=== PATIENT | male | born 1935 | race Two or more races ===

== ENCOUNTER 2020-07-30 06:24 | Inpatient (IN) | payer OTHER ==
[2020-07-30] VITALS (8 sets, daily range): BP systolic 116–151; BP diastolic 54–73
[~2020-07-30] VITALS: Ht 167.6 cm; Wt 112.5 kg
[2020-07-30] MEDS ORDERED: ceFAZolin sod 2 GM in NS 55 ML IVPB ONE (07:00)
[2020-07-30] MEDS ORDERED: ACETAMINOPHEN-1 EAC1 ORAL (09:49)
[2020-07-30] MEDS ORDERED: Lidocaine 1% MPF 10mg/ml 5ml ONE (09:49)
[2020-07-30] MEDS ORDERED: Sodium Chloride 10ml vial INJ ONE (09:49)
[2020-07-30] MEDS ORDERED: Midazolam 2mg/2ml Inj ONE (09:50)
[2020-07-30] MEDS ORDERED: fentaNYL 100 mcg/2 mL IV ONE (09:50)
[2020-07-30] MEDS ORDERED: Ketamine 500mg/10ml vial ONE (09:51)
[2020-07-30] MEDS ORDERED: Bacitracin 50000 Units Vial ONE (09:55)
[2020-07-30] MEDS ORDERED: Gelfoam Size TOPIC ONE (09:55)
[2020-07-30] MEDS ORDERED: Thrombin 5000 units TOPIC ONE (09:55)
--- NOTE | 2020-07-30 10:13 | Anethesia Preoperative Eval ---
Anesthesia Pre-op PMH/ROS General Date of Evaluation: Jul 30, 2020 Time of Evaluation: 10:36 Anesthesiologist: Kia ASA Score: ASA 3 Mallampati Score Class I : Soft palate, uvula, fauces, pillars visible Class II: Soft palate, uvula, fauces visible Class III: Soft palate, base of uvula visible Class IV: Only hard plate visible Mallampati Classification: Class III Surgeon: Ninfa Diagnosis: Neck Pain Surgical Procedure: ACDF C4-5,5-6,6-7 Anesthesia History: none Family History: no anesthesia problems Allergies: Coded Allergies: No Known Allergies (Unverified , 07/28/20) Medications: see eMAR Patient NPO?: Yes Past Medical History Cardiovascular: Reports: HTN, other - Veous Stasis Legs Gastrointestinal/Genitourinary: Reports: other - BPH Musculoskeletal/Integumentary: Reports: edema - Legs Other: obesity - Morbid BMI 41 Anesthesia Pre-op Phys. Exam Physician Exam Vital Signs Date Time Temp Pulse Resp B/P (MAP) Pulse Ox O2 Delivery O2 Flow Rate FiO2 07/30/20 09:51 Room Air 07/30/20 10:31 97.8 20 151/69 (96) 99 Last Vital Signs Date Time Temp Pulse Resp B/P (MAP) Pulse Ox O2 Delivery O2 Flow Rate FiO2 07/30/20 09:51 Room Air Constitutional: NAD Neurologic: CN 2-12 intact Cardiovascular: RRR Respiratory: CTA Gastrointestinal: S/NT/ND Airway Exam Mallampati Score: Class III MO: limited ROM: limited Teeth: missing, intact Anesthesia Pre-op A/P Risk Assessment & Plan Assessment: ASA 3 Plan: GA, SED, GlideScope Status Change Before Surgery: No Pre-Antibiotics Dru Grams Ancef IV Given Within 1 Hr of Incision: Yes Time Given: 11:11 Stefano Adam MD Jul 30, 2020 10:13
--- NOTE | 2020-07-30 10:14 | Immediate Post-Op Evaluation ---
Immediate Post-Op Evalulation Immediate Post-Op Evalulation Procedure: ACDF C4-5,5-6,6-7 Date of Evaluation: Jul 30, 2020 Time of Evaluation: 14:30 IV Fluids: 1000 LR Blood Products: 0 Estimated Blood Loss: 100 Urinary Output: 200 Blood Pressure Systolic: 150 Blood Pressure Diastolic: 67 Pulse Rate: 62 Respiratory Rate: 16 O2 Sat by Pulse Oximetry: 100 Temperature (Fahrenheit): 97.7 Pain Score (1-10): 2 Nausea: No Vomiting: No Complications 0 Patient Status: awake, reacts, patent, extubated, none Hydration Status: adequate Dru Grams Ancef IV Given Within 1 Hr of Incision: Yes Time Given: 11:11 Stefano Adam MD Jul 30, 2020 10:14
[2020-07-30] MEDS ORDERED: HYDROcodone/Acetamin 5/325 tab ORAL PRN ×2 (10:15→11:30)
[2020-07-30] MEDS ORDERED: Midazolam 2mg/2ml Inj IVP PRN (10:15)
[2020-07-30] MEDS ORDERED: fentaNYL 100 mcg/2 mL IV PRN (10:15)
[2020-07-30] MEDS ORDERED: LORazepam Inj 2mg/ml 1ml IV PRN (10:15)
[2020-07-30] MEDS ORDERED: DiphenhydrAMINE 50mg/ml Inj IVP PRN (10:15)
[2020-07-30] MEDS ORDERED: Acetaminophen (Non formulary) 100 ML IV ONE (10:15)
[2020-07-30] MEDS ORDERED: Hydromorphone 0.5mg/0.5ml inj IVP PRN (10:15)
[2020-07-30] MEDS ORDERED: Metoclopramide 10mg/2ml Inj IVP PRN ×2 (10:15→11:30)
[2020-07-30] MEDS ORDERED: Labetalol 5mg/ml 20ml vial IV PRN (10:15)
[2020-07-30] MEDS ORDERED: LR 1000ml 1,000 ML IVLG SCH (10:15)
[2020-07-30] MEDS ORDERED: Ketorolac 30mg Inj IV PRN ×2 (10:15)
[2020-07-30] MEDS ORDERED: oxyCODONE HCL/Acetaminophen 5/325mg ORAL PRN (10:15)
[2020-07-30] MEDS ORDERED: Atropine Sulfate 0.4mg/ml inj IVP PRN (10:15)
[2020-07-30] MEDS ORDERED: HYDROcodone/Acetamin 7.5/325 tab ORAL PRN ×3 (10:15→11:30)
[2020-07-30] MEDS ORDERED: Meperidine 25mg/1ml Inj (FOR RIGORS ONLY) IV PRN (10:15)
--- NOTE | 2020-07-30 10:15 | 48 Hour Post Anesthesia Eval ---
Post Anesthesia Evaluation Procedure: ACDF C4-5,5-6,6-7 Date of Evaluation: Jul 30, 2020 Time of Evaluation: 16:45 Blood Pressure Systolic: 141 0: 68 Pulse Rate: 66 Respiratory Rate: 18 Temperature (Fahrenheit): 98 O2 Sat by Pulse Oximetry: 100 Airway: patent Nausea: No Vomiting: No Pain Intensity: 2 Hydration Status: adequate Cardiopulmonary Status: Stable Mental Status/LOC: patient returned to baseline Follow-up Care/Observations: 0 Post-Anesthesia Complications: 0 Follow-up care needed: N/A Stefano Adam MD Jul 30, 2020 10:15
--- NOTE | 2020-07-30 11:25 | Pre-Procedure Note/Attestation ---
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 I attest that, if there was a reasonable possibility of needing a blood transfusion, the patient (or the patient's legal office services representative) was given the [place] [employer] [facility] standardized written summary, pursuant to the [place] Blood Safety Act ([place] Health and Safety Code # 1645, as amended). I attest that I re-evaluated the patient just prior to the surgery and that there has been no change in the patient's H&P, except as documented below: Kenny Ocasio MD Jul 30, 2020 11:25
--- NOTE | 2020-07-30 11:28 | Brief Operative Note ---
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
[2020-07-30] MEDS ORDERED: Naloxone 0.4mg/ml Inj IVP PRN (11:30)
[2020-07-30] MEDS ORDERED: Morphine Sulfate 4mg/ml Inj (IV USE ONLY) IV PRN ×2 (11:30)
[2020-07-30] MEDS ORDERED: Milk of Magnesia 30ml Ud ORAL PRN (11:30)
[2020-07-30] MEDS ORDERED: Morphine Sulfate 2mg/ml Inj(IV/IM USE ONLY) IV PRN (11:30)
[2020-07-30] MEDS ORDERED: HYDROmorphone 1mg/ml Carpuject IVP PRN (11:30)
[2020-07-30] MEDS ORDERED: Chloraseptic Spray 20mL Bottle ORAL PRN (11:30)
[2020-07-30] MEDS ORDERED: Glycopyrrolate 0.2mg/ml 1ml Vial ONE ×2 (11:57→12:25)
[2020-07-30] MEDS: Docusate 100mg cap ORAL SCH (17:28)
[2020-07-30] MEDS: NS w/KCl 20mEq 1000ml 1,000 ML IV SCH (17:28)
--- NOTE | 2020-07-30 18:05 | Diagnostic Imaging Report ---
INDICATION: Pain, intraoperative TECHNIQUE: Intraoperative imaging Fluoroscopy time: 11.5 seconds Total dose: 0.26018 mGym2 Total number of images: 4 COMPARISON: None FINDINGS: Initial image demonstrates surgical markers overlying C3 and the C5-6 disc. Subsequent images demonstrate surgical tools projected anterior to the C4-5 and C5-6 discs. Subsequent images demonstrate mid cervical anterior fusion IMPRESSION: Intraoperative imaging, as described
--- NOTE | 2020-07-30 18:33 | NUR ---
NURSE NOTES: Received patient report from JULIA Valente. Patient is fatigued and drowsy but able to wake up and make needs known. Patient shows no signs of distress but does have neck pain. Patient is on 3L nasal canula and saturating 95% and above. IV is intact and patent there are no signs of erythema, infiltration, or bleeding. Bed is in the lowest position, call light is within reach. Side rails up x3. Will continue to monitor.
--- NOTE | 2020-07-30 19:35 | NUR ---
NURSE NOTES: Important Events on Shift: Received report from Emily Doss RN. Pt is in bed alert, awake, denies pain. No signs or symptoms of pain or distress noted at this time. Will continue plan of care and close monitoring. Patient Status: full code Diet: Post Op Cervical (soft easy chew) Pending Orders: Neuro checks Q 4 hrs Pending Results/Labs: none Pending MD notification: none Latest Vital Signs: Temperature 99.0 , Pulse 71 , B/P 120 /87 , Respiratory Rate 18 , O2 SAT 92 , Nasal Cannula, O2 Flow Rate 3.0 . Vital Sign Comment: per report, stable throughout shift EKG Rhythm: Sinus Rhythm Rhythm change?: N MD Notified?: - MD Response: Latest Santos Fall Score: 35 Fall Risk: Medium Risk Safety Measures: Call light Within Reach, Bed Alarm Zone 1, Side Rails Side Rails x3, Bed position Low and Locked. Fall Precautions: Yellow Socks, Yellow Gown, Door Sign
[2020-07-30] MEDS: ceFAZolin sod 1 GM in D5W 55 ML IV SCH (19:43)
[2020-07-30] MEDS: Ciprofloxacin 500mg tab ORAL SCH (20:59)
--- NOTE | 2020-07-30 20:59 | Operative Note - Dictated ---
DATE OF OPERATION: 07/30/2020 SURGEON: Kenny Ocasio MD, Orthopaedic Spine Surgeon. PREOPERATIVE DIAGNOSES: 1. Cervical myelopathy. 2. Progressive weakness, difficulty ambulating. 3. Herniation, C3-C4, C4-C5, C5-C6. 4. Neural foraminal stenosis, C3-C4, C4-C5, C5-C6. 5. Stenosis. POSTOPERATIVE DIAGNOSES: 1. Cervical myelopathy. 2. Progressive weakness, difficulty ambulating. 3. Herniation, C3-C4, C4-C5, C5-C6. 4. Neural foraminal stenosis, C3-C4, C4-C5, C5-C6. 5. Stenosis. PROCEDURE PERFORMED: 1. Anterior cervical discectomy and fusion of C3-C4 using NuVasive Interlock C size 5 mm and a total of three screws of 14 mm length, with the insertion of 1 mL allograft Osteocel bone, C4-C5 using NuVasive Interlock C size 6 mm and a total of three screws of 14 mm length, with the insertion of 1 mL allograft Osteocel bone, and C5-C6 using NuVasive Interlock C size 6 mm and a total of three screws of 14 mm length, with the insertion of 1 mL allograft Osteocel bone. 2. Use of intraoperative microscope. 3. Motor-evoked potential monitoring. 4. Somatosensory-evoked potential monitoring. 5. Supervision and interpretation of fluoroscopy. COMPLICATIONS: None. ANESTHESIA: General. ESTIMATED BLOOD LOSS: Less than 100 mL. INDICATIONS FOR SURGERY: This patient is an 84-year-old male who has a history of cervical myelopathy; progressive weakness, difficulty ambulating; herniation of C3-C4, C4-C5, C5-C6; neural foraminal stenosis of C3-C4, C4-C5, C5-C6; and stenosis. We tried a course of conservative management, but despite this course, there was still a significant component of persistent, recalcitrant neck pain and arm pain. The MRI demonstrated significant neural foraminal compromise secondary to disc herniations at C3-C4, C4-C5, C5-C6. We had a long discussion with Yesica regarding the risks and benefits of surgery. Our discussion included but was not limited to nonoperative management, chiropractic management, another epidural steroid injection as well as definitive management in the form of surgery. We recommended an anterior cervical discectomy and fusion of C3-C4, C4-C5, C5-C6 as final definitive management. We reviewed the risks and benefits of surgery with the patient. Our discussion included a comprehensive review of the clinical issues and the nature of the clinical decision. We reviewed the alternatives, including doing nothing. The patient elected to proceed accordingly with anterior cervical discectomy and fusion of C3-C4, C4-C5, C5-C6. We had a long discussion regarding the risks, alternatives, and benefits of surgery. Our description of the risks included a discussion in person as well as a signed consent, which detailed all pertinent risks from the procedure itself. Briefly, our discussion included but was not limited to infection, bleeding, pseudarthrosis, spinal cord injury, neurovascular injury, dural tear, CSF leak, neuropathy, paralysis, permanent weakness/drop foot/drop arm, paresthesias, blindness, palsy, and weakness. The patient understood there may be a need for a revision surgery or additional procedures. Approach-related complications including dysphonia, dysphagia, blindness, permanent vocal cord and neural injury, hematoma, swallowing and breathing difficulty. Medical complications were reviewed including liver, kidney, shock, cardiopulmonary failure, anesthesia complications including , swelling, damage to the musculature, larynx/voice injury or loss, esophagus/throat, trachea, blood vessels and muscles/muscular sprain and lungs/pneumothorax during this surgical procedure; injury to deeper structures may be temporary or permanent. After this review of risks, the patient understood these and elected to proceed. A written and verbal consent was given. We discussed the pros and cons of all the alternatives. We discussed the uncertainties associated with the decision. Afterwards, I assessed the patient's understanding and explored their preferences. All questions were answered and no guarantees were given. Medical clearance was obtained prior to surgery. INTRAOPERATIVE FINDINGS: C3-C4 demonstrated decreased disc height. The disc was soft and spongy. There was a tear noted in the posterior longitudinal ligament centrally, which was in line with the fibers of the PLL. This was resected with the use of a Microsect curette and led to the discovery of herniated fragments, which were encroaching and placing severe pressure on the thecal sac and spinal cord posteriorly both on the right and left neural foramina, but severe pressure centrally. This was resected with a combination of a Microsect 1-B curette, Kerrison 1 and Kerrison 2 rongeurs until complete and thorough anterior cervical discectomy was performed. Bilateral foraminotomies confirmed complete and thorough decompression of the bilateral exiting neural foramina at C3-C4. I should note there was severe pressure on the thecal sac and spinal cord, which was decompressed without any complication. C4-C5; there were no anterior spurs noted. The disc itself was soft and spongy. There was some decrease in disc height, however, it was not collapsed or ypjy-zx-wmsm. The disc was resected in its entirety, which led to discovery of a tear in the posterior longitudinal ligament. This tear was in line with the fibers vertically approximately 10 degrees cephalad to caudad. This tear was probed with a Microsect curette, which led to discovery of a large fragment of nuclear pulposus tissue posteriorly. This was then resected with a Kerrison 1 and Kerrison 2 rongeurs until complete and thorough decompression of the spinal cord and thecal sac was performed. Bilateral neural foramina were resected to perform a foraminotomy bilaterally at C4-C5 without difficulty. C5-C6; at C5-C6, there was an anterior spur noted at the vertebral endplate of C5 and C6 inferiorly and superiorly respectively. The disc space was collapsed. The disc itself was desiccated, dehydrated, and crumbled. The disc was resected. This led to the discovery posteriorly of tears in the posterior longitudinal ligament, both right-sided and left-sided in line with the fibers. These were evaluated with a Microsect 1-B curette and found to demonstrate nuclear fragments, which were posterior to the tears and encroaching on the thecal sac that was midline as well as bilateral neural foramina. These were resected with a combination of Kerrison 1 and Kerrison 2 rongeurs until complete and thorough decompression of thecal sac and spinal cord was performed. DESCRIPTION OF PROCEDURE: Under the benefit of general endotracheal anesthesia and with the assistance of the entire operative team, the patient was moved from the [facility] onto the operative table in the supine position. The head was secured and carefully positioned appropriately. Bilateral arms were secured with Gel Pads and foam and all bony prominences were padded. For the bilateral lower extremities, SCD and ANIKA hose were placed for DVT prophylaxis. A surgical timeout was called, which corroborated our planned procedure of anterior cervical discectomy and fusion of C3-C4, C4-C5, C5-C6. Preoperative antibiotics were administered within 30 minutes of the incision for antibiotic prophylaxis. Using lateral fluoroscopic radiography, the operative levels were delineated. Next, the wound was prepped and draped with chlorhexidine and sterile drapes. An incision was based on lateral fluoroscopy and we centered our incision at the C3-C4, C4-C5, C5-C6 interspace and next using a standard Carrasco-Aponet anterior-based approach, the incision was taken down through the skin and subcutaneous tissues until the vertebral bodies and their corresponding disc spaces were visualized. A needle was placed into the interspace to confirm placement of the operative interspace and we performed the remainder of procedure under microscopic visualization. Next, using a bipolar and Bovie cautery to ensure meticulous hemostasis, the longus colli was mobilized bilaterally and retractors were placed deep to the longus colli bilaterally to address retraction. Next, we turned our attention to the radical anterior discectomy. This was initially performed at C3-C4 first by using a 15 blade scalpel followed by narrow pituitaries and a Microsect 5-B curette was used to denude the endplate of all cartilaginous tissue. Next, using a [employer] AM8 drill bit, the partial vertebrectomy was performed in a dtnv-fi-mvyx and ufpmu-lj-ovuqv fashion and ultimately the posterior uncinate joints bilaterally and posterior osteophytic lips and margins causing central and lateral impingement were carefully denuded until visualization of the posterior longitudinal ligament was possible. An endplate preparation was performed in the exact same fashion using an intervertebral form grader operator, sequential distraction was obtained throughout the disc space. We saw a tear/rent in the PLL and this was carefully mobilized and dissected using a Microsect 1-B curette until we visualized a broad-based disc herniation with compression of the spinal cord as well as neural foramina, which was both right-sided and left-sided. This neural foraminal compression was carefully resected using a Kerrison-1 and Kerrison-2 rongeurs until complete decompression of the spinal cord was visualized and complete decompression of the neural foramina and nerve root therein as well as the axilla and lateral margin of the nerve root was visualized and subsequently completely decompressed. The family was notified at one-hour intervals throughout the procedure to provide for consistent updates. Next, we turned our attention to the radical anterior discectomy at the C4-C5 level by using a 15 blade scalpel followed by narrow pituitaries and a Microsect 5-B curette was used to denude the endplate of all cartilaginous tissue. Next, using a [employer] AM8 drill bit, the partial vertebrectomy was performed in a mazm-no-tygj and xwzds-af-cvshl fashion and ultimately the posterior uncinate joints bilaterally and posterior osteophytic lips and margins causing central and lateral impingement were carefully denuded until visualization of the posterior longitudinal ligament was possible. An endplate preparation was performed in the exact same fashion using an intervertebral form grader operator, sequential distraction was obtained throughout the disc space. We saw a tear/rent in the PLL and this was carefully mobilized and dissected using a Microsect 1-B curette until we visualized a broad-based disc herniation with compression of the spinal cord as well as neural foramina, which was . This neural foraminal compression was carefully resected using Kerrison-1 and Kerrison-2 rongeurs until complete decompression of the spinal cord was visualized and complete decompression of the neural foramina and nerve root therein as well as the axilla and lateral margin of the nerve root was visualized and subsequently completely decompressed. Next, we turned our attention to the radical anterior discectomy at the C4-C5 level by using a 15 blade scalpel followed by narrow pituitaries and a Microsect 5-B curette was used to denude the endplate of all cartilaginous tissue. Next, using a [employer] AM8 drill bit, the partial vertebrectomy was performed in a glrm-rj-aupw and axqkb-ko-lbttc fashion and ultimately the posterior uncinate joints bilaterally and posterior osteophytic lips and margins causing central and lateral impingement were carefully denuded until visualization of the posterior longitudinal ligament was possible. An endplate preparation was performed in the exact same fashion using an intervertebral form grader operator, sequential distraction was obtained throughout the disc space. We saw a tear/rent in the PLL and this was carefully mobilized and dissected using a Microsect 1-B curette until we visualized a broad-based disc herniation with compression of the spinal cord as well as neural foramina, which was both right-sided and left-sided. This neural foraminal compression was carefully resected using Kerrison-1 and Kerrison-2 rongeurs until complete decompression of the spinal cord was visualized and complete decompression of the neural foramina and nerve root therein as well as the axilla and lateral margin of the nerve root was visualized and subsequently completely decompressed. We next turned our attention towards trialing our implant within the disc space. We initially tried size 5 and size 5 trial from the NuVasive system at C3-C4 and size 6 trial from the NuVasive system at C4-C5 appeared to be appropriate under AP and lateral fluoroscopy as well as in terms of their height, depth, width, and lack of toggle. The PEEK (polyetheretherketone) interbody cages were then both packed with 1 mL allograft bone from Osteocel and local autograft bone matrix. Next, these were then carefully advanced and secured into their intervertebral spaces under direct visualization and with supervision of AP and lateral fluoroscopic views. This was then performed at the next level, C5-C6. We initially tried size 5 and afterwards size 6 trial from the NuVasive system at C5-C6 level appeared to be appropriate under AP and lateral fluoroscopy as well as in terms of its height, depth, width, and lack of toggle. The PEEK (polyetheretherketone) interbody cages were then both packed with 1 mL allograft bone from Osteocel and local autograft bone matrix. Next, this was then carefully advanced and secured into its intervertebral space under direct visualization and with supervision of AP and lateral fluoroscopic views. We next turned our attention towards plating. Plating was performed at C3-C4 with the NuVasive Interlock-C plating system. A total of three screws, size 14 mm in length were inserted and confirmed under AP and lateral fluoroscopy and confirmed to be in excellent position. This was then performed at the next level, C4-C5. Plating was performed with the NuVasive Interlock-C plating system. A total of three screws, size 14 mm in length were inserted and confirmed under AP and lateral fluoroscopy and confirmed to be in excellent position. This was then performed at the next level, C5-C6. Plating was performed with the NuVasive Interlock-C plating system. A total of three screws, size 14 mm in length were inserted and confirmed under AP and lateral fluoroscopy and confirmed to be in excellent position. After a finger sweep, we confirmed removal of all sponges. The retractor was removed and we next turned our attention to meticulous hemostasis with FloSeal and bipolar cautery. After the sponge and needle count was again found to be correct with our second count, we next turned our attention to closure. The wound was again copiously irrigated with antibiotic-impregnated saline. Closure consisted of 4-0 clear nylon for the platysma, and 6-0 clear nylon for the superficial skin. Final skin closure and dressings consisted of Dermabond. Prior to final closure, a final radiograph was obtained which demonstrated the hardware was intact with excellent position throughout. The patient tolerated the procedure well. The patient was carefully extubated after the conclusion of surgery. We discussed the findings of the surgery with the family upon completion of the case. At this point, the patient was transferred to the spine floor for further observation. Kenny Ocasio M.D. DR: Angel JOB#: [id number] CC:
[2020-07-31] VITALS: BP 120/87
[2020-07-31] MEDS: ceFAZolin sod 1 GM in D5W 55 ML IV SCH ×2 (03:08→11:16)
[2020-07-31] MEDS: NS w/KCl 20mEq 1000ml 1,000 ML IV SCH ×2 (03:08→13:21)
[2020-07-31 04:00] VITALS: BP 128/68
--- NOTE | 2020-07-31 06:22 | NUR ---
NURSE HAND-OFF REPORT: Important Events on Shift: none Patient Status: full code Diet: Post op cervical, soft easy chew Pending Orders: none Pending Results/Labs: AM labs Pending MD notification: none Latest Vital Signs: Temperature 99.2 , Pulse 78 , B/P 128 /68 , Respiratory Rate 20 , O2 SAT 95 , Nasal Cannula, O2 Flow Rate 3.0 . Vital Sign Comment: stable throughout shift EKG Rhythm: Sinus Rhythm Rhythm change?: N MD Notified?: - MD Response: Latest Santos Fall Score: 35 Fall Risk: Medium Risk Safety Measures: Call light Within Reach, Bed Alarm Zone 1, Side Rails Side Rails x3, Bed position Low and Locked. Fall Precautions: Yellow Socks, Yellow Gown, Door Sign Report given to be to Eugenia Alanis RN.
--- NOTE | 2020-07-31 07:16 | NUR ---
NURSE NOTES: Received report from JULIA Urena. Pt is A/O x3-4. No SOB or acute distress noted. Pt has pain at 3/10 but states pain is tolerable. Pt is on 3L NC with saturation of 96%. Pt has a IV on the R hand 18G which is intact and patent. finish rolls operator show NSR @ 86. Bed is in the lowest position and locked with side rails x2. Call light placed within reach. Will continue plan of care.
[2020-07-31 08:00] VITALS: BP 139/57
[2020-07-31] MEDS: Ciprofloxacin 500mg tab ORAL SCH (08:37)
[2020-07-31] MEDS: Docusate 100mg cap ORAL SCH (08:37)
[2020-07-31 12:00] VITALS: BP_SYST 135; BP_SYST 139; BP_DIAS 57; BP_DIAS 64
--- NOTE | 2020-07-31 12:38 | NUR ---
NURSE NOTES: Spoke to Dr Ocasio regarding discharge and that PT thinks he needs more but family is leaving tomorrow for [place] and states that they are there to help him but won't be able to if he does not discharge today. Dr Ocasio stated as long as he has help then he can discharge.
--- NOTE | 2020-07-31 12:50 | NUR ---
NURSE NOTES: Spoke to Jassi Olguin the patients nephew regarding discharge and set up the time to be at 1700. Gualberto was informed that his nephew will pick him up at 1700 and we will get him ready at 1600.
--- NOTE | 2020-07-31 13:02 | NUR ---
NURSE NOTES: Spoke to Dr. Ocasio regarding discharge medications which he stated to follow home medications and that he left a prescription pad for pain medications for the patient. Will carry out discharge orders and complete the assessment.
--- NOTE | 2020-07-31 14:45 | NUR ---
PT Note PT rusty completed, treatment initiated. Patient is very motivated to walk and go home. He has muscle weakness specially on the right UE/LE with incoordination with decreased standing balance, making him at a high risk for falls. Patient needs PT services to to increase his muscle strength and balance to improve his strength and balance to improve his safety in mobility and gait to prevent falls. Addendum: 07/31/20 at 1447 by JESUSITA WITT PT Amended: Links added.
[2020-07-31 16:00] VITALS: BP 144/82
--- NOTE | 2020-07-31 17:30 | NUR ---
NURSE NOTES: Pt IV and arm band removed. Discharge packet gone through and information given to patient in the green folder. Pt was wheeled to a private vehicle with family waiting for him. Pt used his walker to enter the vehicle. Pt in stable condition.
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
--- NOTE | 2020-08-02 07:44 | Pre-op HX & Phy Repo 2 SIG ---
DATE OF ADMISSION: 07/30/2020 CHIEF COMPLAINT: Severe worsening of cervical myelopathy. SUBJECTIVE: This is an 84-year-old male, who is new to us and has had a history of cervical radiculopathy, which according to his family has worsened significantly and progressively severe cervical myelopathy symptomatic. He has noted that he has developed trouble walking, he has had significant trouble with his balance, has been only able to use a wheelchair noted in response to the use in the ED. able to mobilize . Cervical spondylotic myelopathy, now progressively worsening with a long discussion with the family as well as the patient regarding cervical direction with MiraLAX daily ___. The majority of the pathology as well as ventral from anterior direction does have the ability to provide extension and hyperextension of his neck, which again was confirmed today on a preoperative examination. There was severe cervical kyphosis as well. This would best be addressed at this point with a 2 stage procedure. First will performed anterior cervical diskectomy and fusion as many levels as possible based on his intraoperative status and cardiopulmonary status. I would not like to attend Cervical ____ images of the specimen discectomy and fusion at a later date. He would benefit from posterior laminectomy and lateral fixation. We had a long discussion with him regarding risks of surgery including , paralysis along with his family and his sister and everyone understand to the . However, they are concerned that if this worsens and elected to proceed. Kenny Ocasio M.D. DR: MAX JOB#: [id number] CC:
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
== END 2020-07-31 17:30 | disposition home or self-care (01) | DRG 472 ==
LOC: SDSOVERFLO 09:16 → 2E 15:30
PROC: 0RG20A0 Fusion of 2 or more Cervical Vertebral Joints with Interbody Fusion Device, Anterior Approach, Anterior Column, Open Approach (ICD-10-PCS; principal; 2020-07-30 11:00)
PROC: 0RB30ZZ Excision of Cervical Vertebral Disc, Open Approach (ICD-10-PCS; principal; 2020-07-30 11:00)
DX: M50.01 Cervical disc disorder with myelopathy, high cervical region (principal); Z68.41 Body mass index [BMI] 40.0-44.9, adult; M48.02 Spinal stenosis, cervical region; M40.292 Other kyphosis, cervical region; V09.9XXS Pedestrian injured in unspecified transport accident, sequela; E66.9 Obesity, unspecified; Z88.6 Allergy status to analgesic agent
CPT/HCPCS: 36415; 72040; 76000; 86850; 86900; 86901; 87081; 87086; 94003; 94150; J2250; J2405